=== PATIENT | female | born 1970 | race Caucasian/White ===

== ENCOUNTER 2016-10-07 17:46 | Inpatient (IN) | payer MEDICAID ==
[~2016-10-07] VITALS: Ht 152.4 cm; Wt 68.0 kg
[2016-10-07 18:35] LABS: microscopic required? YES; urine erythrocyte 3+ (NEGATIVE)
[2016-10-07 19:26] LABS: BASOPHIL % 0.1 % (0-2); PLATELET COUNT 222 x10^3mcL (130-400); RED CELL DISTRIBUTION WIDTH 13.8 % (11.5-14.5)
[2016-10-07 20:15] LABS: CALCIUM 8.3 mg/dL (8.5-10.1); CARBON DIOXIDE 26.9 mmol/L (21-32); CHLORIDE SERUM 102 mmol/L (98-107); CREATININE SERUM 0.7 mg/dL (0.6-1.0); GFR1 > 60 mL/min; GLUCOSE SERUM 125 mg/dL (74-106); POTASSIUM SERUM 3.3 mmol/L (3.5-5.1); SODIUM SERUM 138 mmol/L (136-145)
[2016-10-07 20:20] LABS: ALBUMIN 3.4 g/dL (3.4-5.0); ALKALINE PHOSPHATASE 94 U/L (46-116); ALT/SGPT 33 U/L (14-59); AMYLASE 43 U/L (25-115); AST/SGOT 25 U/L (15-37); BILIRUBIN TOTAL 0.3 mg/dL (0.20-1.00); LIPASE 117 IU/L (73-393); TOTAL PROTEIN, SERUM 7.5 g/dL (6.4-8.2)
[2016-10-07 21:07] LABS: T3 TOTAL 0.66 ng/mL
[2016-10-07 21:18] LABS: FREE T4 0.91 ng/dL (0.76-1.46); FREE THYROXINE INDEX 2.2 ug/dL (1.4-4.5); T4(THYROXINE) 8.5 ug/dL (4.7-13.3)
[2016-10-07 21:28] VITALS: BP 113/64
[2016-10-07 21:31] VITALS: Ht 152.4 cm; Wt 68.0 kg
[2016-10-07 22:13] LABS: AMPHETAMINE QUAL UR NONE DETECTED (NEG <=1000)
[2016-10-07 22:18] LABS: MAGNESIUM 1.8 mg/dL (1.8-2.4); PHOSPHOROUS 2.9 mg/dL (2.5-4.9)
[2016-10-07 22:24] LABS: CHOLESTEROL/HDL RATIO 2.1
[2016-10-08 06:00] LABS: PLATELET COUNT 200 x10^3mcL (130-400); RED CELL DISTRIBUTION WIDTH 14.1 % (11.5-14.5)
[2016-10-08 06:04] VITALS: BP 97/56
[2016-10-08 06:08] LABS: CALCIUM 7.7 mg/dL (8.5-10.1); CARBON DIOXIDE 27.5 mmol/L (21-32); CHLORIDE SERUM 107 mmol/L (98-107); CREATININE SERUM 0.6 mg/dL (0.6-1.0); GFR1 > 60 mL/min; GLUCOSE SERUM 133 mg/dL (74-106); POTASSIUM SERUM 3.7 mmol/L (3.5-5.1); SODIUM SERUM 141 mmol/L (136-145)
[2016-10-08 06:35] LABS: BASOPHIL % 0 % (0-2)
[2016-10-08 08:55] VITALS: BP 109/60
[2016-10-08 09:50] VITALS: BP 109/60
[2016-10-08 14:05] VITALS: BP 106/88
[2016-10-08 18:24] VITALS: BP 94/53
[2016-10-08 21:31] VITALS: BP 111/60
[2016-10-09 00:10] VITALS: BP 112/53
[2016-10-09 05:17] VITALS: BP 95/52
[2016-10-09 05:56] LABS: BASOPHIL % 0.2 % (0-2); PLATELET COUNT 195 x10^3mcL (130-400); RED CELL DISTRIBUTION WIDTH 13.9 % (11.5-14.5)
[2016-10-09 06:09] LABS: ALKALINE PHOSPHATASE 63 U/L (46-116); ALT/SGPT 23 U/L (14-59); AST/SGOT 21 U/L (15-37); BILIRUBIN TOTAL 0.2 mg/dL (0.20-1.00); CALCIUM 7.6 mg/dL (8.5-10.1); CARBON DIOXIDE 26.3 mmol/L (21-32); CHLORIDE SERUM 106 mmol/L (98-107); CREATININE SERUM 0.6 mg/dL (0.6-1.0); GFR1 > 60 mL/min; GLUCOSE SERUM 110 mg/dL (74-106); MAGNESIUM 1.7 mg/dL (1.8-2.4); PHOSPHOROUS 3.6 mg/dL (2.5-4.9); POTASSIUM SERUM 3.6 mmol/L (3.5-5.1); SODIUM SERUM 140 mmol/L (136-145)
[2016-10-09 06:10] LABS: ALBUMIN 2.4 g/dL (3.4-5.0); TOTAL PROTEIN, SERUM 5.6 g/dL (6.4-8.2)
[2016-10-09 08:59] VITALS: BP 96/55
[2016-10-09 18:05] VITALS: BP 96/51
[2016-10-09 21:30] VITALS: BP 108/48
[2016-10-10 06:41] LABS: BASOPHIL % 0.5 % (0-2); PLATELET COUNT 190 x10^3mcL (130-400); RED CELL DISTRIBUTION WIDTH 14.1 % (11.5-14.5)
[2016-10-10 06:50] LABS: CALCIUM 7.4 mg/dL (8.5-10.1); CARBON DIOXIDE 27.3 mmol/L (21-32); CHLORIDE SERUM 105 mmol/L (98-107); CREATININE SERUM 0.6 mg/dL (0.6-1.0); GFR1 > 60 mL/min; GLUCOSE SERUM 88 mg/dL (74-106); MAGNESIUM 1.7 mg/dL (1.8-2.4); POTASSIUM SERUM 3.4 mmol/L (3.5-5.1); SODIUM SERUM 138 mmol/L (136-145)
[2016-10-10 07:04] VITALS: BP 114/57
[2016-10-10 07:40] VITALS: BP 123/60
[2016-10-10 13:37] VITALS: BP 114/67
[2016-10-10 21:40] VITALS: BP 124/63
[2016-10-11 05:06] LABS: BASOPHIL % 0.2 % (0-2); PLATELET COUNT 230 x10^3mcL (130-400)
[2016-10-11 05:08] LABS: ALKALINE PHOSPHATASE 74 U/L (46-116); ALT/SGPT 37 U/L (14-59); AST/SGOT 51 U/L (15-37); BILIRUBIN TOTAL 0.3 mg/dL (0.20-1.00); CALCIUM 8.1 mg/dL (8.5-10.1); CARBON DIOXIDE 28.1 mmol/L (21-32); CHLORIDE SERUM 101 mmol/L (98-107); CREATININE SERUM 0.5 mg/dL (0.6-1.0); GFR1 > 60 mL/min; GLUCOSE SERUM 94 mg/dL (74-106); MAGNESIUM 2.1 mg/dL (1.8-2.4); POTASSIUM SERUM 3.9 mmol/L (3.5-5.1); SODIUM SERUM 135 mmol/L (136-145); TOTAL PROTEIN, SERUM 6.2 g/dL (6.4-8.2)
[2016-10-11 05:13] LABS: ALBUMIN 2.6 g/dL (3.4-5.0)
[2016-10-11 05:36] VITALS: BP 121/63
[2016-10-11 09:51] VITALS: BP 119/58
[2016-10-11 12:43] VITALS: BP 135/78
[2016-10-11] MEDS ORDERED: NOR10T PO (15:11)
[2016-10-11] MEDS ORDERED: ZOF4 PO (15:12)
[2016-10-11] MEDS ORDERED: COL100 PO (15:12)
[2016-10-11] MEDS ORDERED: GAS RELIEF80 MG CH (15:14)
[2016-10-11 15:17] VITALS: BP 135/78
[2016-10-11 16:04] VITALS: BP 118/68
== END 2016-10-11 20:31 | disposition home or self-care (01) | DRG 263 ==
LOC: ED 17:46 → MU 19:34 → DU 19:34 → MU 10-08 18:41
PROVIDERS: Emergency Medicine; Family Medicine; Transplant Surgery; ADMIT Family Medicine
PROC: 0FT44ZZ Resection of Gallbladder, Percutaneous Endoscopic Approach (ICD-10-PCS; principal; 2016-10-10 14:00)
DX: K80.00 Calculus of gallbladder with acute cholecystitis without obstruction (principal); N17.0 Acute kidney failure with tubular necrosis; E43 Unspecified severe protein-calorie malnutrition; E87.6 Hypokalemia; E83.42 Hypomagnesemia; K42.9 Umbilical hernia without obstruction or gangrene; E78.5 Hyperlipidemia, unspecified; M54.5 Low back pain; N83.202 Unspecified ovarian cyst, left side; N83.201 Unspecified ovarian cyst, right side; N88.8 Other specified noninflammatory disorders of cervix uteri; D64.9 Anemia, unspecified; Z98.82 Breast implant status
CPT/HCPCS: 80307; 83880; 84439; C9113; J0295; J0330; J1100; J1170; J1200; J1644; J1885; J1940; J2175; J2250; J2405; J2704; J2710; J3010; J3475; J3490; J7030; J7120; Q0092; Q0162; Q9967